=== PATIENT | male | born 1980 | race Hispanic/Latino ===

== ENCOUNTER 2024-06-11 19:27 | Emergency (ER) | payer OTHER, MEDICARE ==
[~2024-06-11] VITALS: Ht 167.6 cm; Wt 81.6 kg
--- NOTE | 2024-06-11 19:51 | ERN ---
General Chief Complaint: Alcohol Intoxication Stated Complaint: INTOXICATION Time Seen by MD: 19:32 Source: patient, EMS History of Present Illness Initial Comments 43-year-old male coming in for medical clearance. Per EMS patient was sent over by law enforcement for medical clearance. Patient states he does not know why he was here and states he was sent over for clearance. Allergies: Coded Allergies: No Known Allergies (Unverified Allergy, Unknown, 06/11/24) Past Medical History Past Medical History: Alcoholism Past Surgical History: None ROS Dictation CONSTITUTIONAL: No chills, no fever, no weakness, no diaphoresis, no malaise. HEAD/FACE: No signs of trauma. EENT: No eye pain, no blurred vision, no tearing, no double vision, no ear pain, no ear discharge, no nose pain, no nasal congestion, no throat pain, no throat swelling, no mouth pain. RESPIRATORY: No cough, no orthopnea, no SOB, no stridor, no wheezing. CARDIOVASCULAR: No chest pain, no edema, no palpitations, no syncope. GASTROINTESTINAL/ABDOMINAL: No abdominal pain, no constipation, no diarrhea, no nausea, no vomiting. GENITOURINARY: No abnormal discharge, no dysuria, no frequent urination, no hematuria. No complaints of pain in the genitals. MUSCULOSKELETAL: No back pain, no gout, no joint pain, no joint swelling, no muscle pain, no muscle stiffness, no neck pain. INTEGUMENTARY: No change in color, no change in hair/nails, no dryness, no lesion, no lumps, no rash. NEUROLOGICAL/PSYCH: No anxiety, not depressed, no emotional problem, no headache, no numbness, no pre-existing deficit, no history of seizures, no tremors, no weakness. HEMATOLOGIC/LYMPHATIC: Not anemic, no history of blood clots, no apparent bleeding, no bruising, glands not swollen. All Systems Negative, Except as Noted. Physical Exam Physical Exam Dictation VITAL SIGNS: Reviewed. GENERAL APPEARANCE: Alert, oriented x3, no acute distress, obese. HEAD AND FACE: Non-traumatic. EYES: PERRL, pink conjunctivas, eyelid no trauma, anterior chamber clear. EARS: Pinnas intact and no signs of trauma or erythema. Ear canals clear and no discharge. TMs no erythema. NOSE: No discharge, no bleeding. OROPHARYNX: Mouth normal, teeth no caries, tongue pink. Pharynx clear, no erythema. Tonsils no exudates, no abscesses noted. Mucous membrane moist. NECK: Supple, non-tender, no thyromegaly, no masses, no JVD, no bruits. BREAST: Deferred. CHEST: No tenderness, no crepitus, no paradoxical movement, no retractions. LUNGS: Clear, well-ventilated, symmetric, no rales, no wheezing, no rhonchi, no stridor, good breath sounds bilaterally. HEART: Regular rate, regular rhythm, no murmur, no gallops. VASCULAR: No peripheral edema. ABDOMEN: Soft, positive bowel sounds, nondistended, no guarding, nontender, no r ebound, no masses no hepatomegaly, no splenomegaly, no Batista's sign, no hernias. RECTAL: Deferred. GENITAL: Deferred. NEUROLOGICAL: Normal speech, gross motor function intact, gross sensory function intact. MUSCULOSKELETAL: Neck nontender, full range of motion, back nontender, full range of motion. EXTREMITIES: Nontender, full range of motion. SKIN: Color pink, dry, no turgor, no rash, no lacerations, no abrasions, no contusions. LYMPHATICS: Deferred. Results Laboratory and Microbiology Lab and Micro Result Laboratory Tests Test 06/11/24 20:11 06/11/24 20:20 06/11/24 23:40 White Blood Count 7.7 K/uL (4.8-10.8) Red Blood Count 5.03 MIL/uL (4.50-6.20) Hemoglobin 15.6 g/dL (14.0-18.0) Hematocrit 45.1 % (42-54) Mean Corpuscular Volume 89.7 fL (79-99) Mean Corpuscular Hemoglobin 31.0 pg (27.0-33.0) Mean Corpuscular Hemoglobin Concent 34.6 g/dL (32.0-36.0) Red Cell Distribution Width 12.4 % (11.0-15.5) Platelet Count 299 K/uL (130-400) Mean Platelet Volume 9.8 fL (7.5-10.5) Immature Granulocyte % (Auto) 0.0 % (0-1) Neutrophils (%) (Auto) 63.4 % (40.0-77.0) Lymphocytes (%) (Auto) 26.9 % (21.0-51.0) Monocytes (%) (Auto) 7.7 % (3.0-13.0) Eosinophils (%) (Auto) 1.2 % (0.0-8.0) Basophils (%) (Auto) 0.8 % (0.0-5.0) Neutrophils # (Auto) 4.9 K/uL (1.8-7.7) Lymphocytes # (Auto) 2.1 K/uL (1.0-4.8) Monocytes # (Auto) 0.6 K/uL (0.1-1.0) Eosinophils # (Auto) 0.09 K/uL (0.00-0.70) Basophils # (Auto) 0.06 K/uL (0.00-0.20) Absolute Immature Granulocyte (auto 0.00 K/uL (0-1) Nucleated Red Blood Cells 0.0 % (0.0-0.19) Sodium Level 136 mmol/L (136-145) Potassium Level 3.4 mmol/L (3.5-5.1) L Chloride Level 98 mmol/L (101-111) L Carbon Dioxide Level 25 mmol/L (21-32) Blood Urea Nitrogen 15 mg/dL (7-18) Creatinine 1.1 mg/dL (0.5-1.3) Glomerular Filtration Rate Calc 86 mL/min (>90) Random Glucose 154 mg/dL (70-105) H Total Calcium 8.8 mg/dL (8.5-10.1) Total Creatine Kinase 376 U/L (21-232) H Salicylates Level < 2.8 mg/dL (2.8-20.0) L Acetaminophen Level < 1 mcg/mL (10-29) L Serum Alcohol 116 mg/dL (0-10) H 14 mg/dL (0-10) H Urine Color YELLOW (YELLOW) Urine Appearance CLEAR (CLEAR) Urine pH 5.5 (5.0-8.0) Urine Specific [place] 1.026 (1.001-1.031) Urine Protein 10 mg/dL (NEGATIVE) H Urine Glucose (UA) >=1000 mg/dL (NEGATIVE) H Urine Ketones NEGATIVE mg/dL (NEGATIVE) Urine Occult Blood NEGATIVE (NEGATIVE) Urine Nitrate NEGATIVE (NEGATIVE) Urine Bilirubin NEGATIVE mg/dL (NEGATIVE) Urine Urobilinogen 2.0 mg/dL (0.2-1.0) H Urine Leukocyte Esterase NEGATIVE Mikael/uL Urine RBC 0-1 /HPF (0-1) Urine WBC 2-5 /HPF (0-1) H Urine Bacteria RARE /HPF (None Seen) Urine Opiates Screen NEGATIVE (NEGATIVE) Urine Barbiturates Screen NEGATIVE (NEGATIVE) Urine Phencyclidine Screen NEGATIVE (NEGATIVE) Urine Amphetamines Screen NEGATIVE (NEGATIVE) Urine Benzodiazepines Screen NEGATIVE (NEGATIVE) Urine Cocaine Screen POSITIVE (NEGATIVE) H Urine Marijuana (THC) Screen POSITIVE (NEGATIVE) H Labs Reviewed?: Yes EKG/XRAY/US/CT/MRI X-RAY Comment [address] [place] [address] IMAGING REPORT Signed PATIENT: KIMBERLY ALMARAZ MR#: [id number] : 1980 SEX: M AGE: 43 LOCATION: ED ORDER 40 STATUS: REG ER REPORT#: [id number] SERVICE 39 REASON: medical clearance ORDERING PHYSICIAN: NO RIVERS MD PROCEDURE: CXR1VW - CHEST 1VW CHEST 1VW HISTORY: Medical. COMPARISON: None FINDINGS: A frontal projection of the chest was obtained. Prominent interstitial markings are seen with possible superimposed infiltrates. The heart is normal in size. Degenerative changes are seen. No evidence of aortic calcification is seen. IMPRESSION: 1. Prominent interstitial markings are seen with possible superimposed infiltrates. DICTATED BY: MACK ROSENBAUM MD DATE: 06/11/242228 ELECTRONICALLY SIGNED BY: MACK ROSENBAUM MD DATE: 06/11/242231 [facility] MDM: Differential diagnosis: Medical screening, polysubstance abuse, alcohol abuse, Patient is a 43-year-old gentleman coming in for medical screening. Per EMS patient was sent over from [facility] further evaluation. Throughout ER visit patient has been stable received IV fluids and also was not given some new since the eat. His alcohol level dropped significantly. Per [facility] patient is to follow up at [facility] and to be discharged since he does not have a plan for hurting himself. Negative suicidal ideation any other psychiatric concern which with a warrant an immediate psych evaluation. Patient understands discharge and agrees with plan to follow up at [facility]. ED Course Orders Procedure Category Date Status Time Cbc With Differential LAB 06/11/24 Complete 19:40 Alcohol, Blood LAB 06/11/24 Complete 19:40 Salicylate LAB 06/11/24 Complete 19:40 Acetaminophen LAB 06/11/24 Complete 19:40 Urinalysis Profile LAB 06/11/24 Complete 19:40 Chest 1vw RAD 06/11/24 Resulted 19:40 Creatine Kinase, Total LAB 06/11/24 Complete 19:40 Basic Metabolic Panel LAB 06/11/24 Complete 19:40 Drug Screen Urine LAB 06/11/24 Complete 19:40 Hydroxyzine 50mg Vial PHA 06/11/24 In Process (Atarax 50mg Inj) 22:00 0.9%Nacl 1000ml (Ns PHA 06/11/24 Complete 1000ml) 23:30 Alcohol, Blood LAB 06/11/24 Complete 23:23 Current Medications Medications (Trade) Dose Ordered Sig/Angel Route PRN Reason Start Time Stop Time Status Last Admin Dose Admin Hydroxyzine HCl (ATArax 50MG INJ) 50 mg ONCE IM 06/11/24 22:00 07/11/24 21:59 06/11/24 21:49 Sodium Chloride 1,000 ml @ 0 mls/hr ONCE ONCE IV 06/11/24 23:30 06/11/24 23:31 DC Vital Signs Date Time Temp Pulse Resp B/P (MAP) Pulse Ox O2 Delivery O2 Flow Rate FiO2 06/11/24 19:30 98.1 102 18 130/80 98 Room Air* 0 21 06/11/24 19:29 98.1 102 20 130/80 98 DX & DISP Disposition: Discharge Departure Impression: Primary Impression: Encounter for medical screening examination Additional Impressions: Polysubstance abuse, Alcohol abuse Condition: Stable Additional Instructions: FOLLOW-UP WITH PRIMARY CARE PROVIDER IN 1 TO 2 DAYS. TAKE MEDICATIONS DIRECTED HERE IN THE EMERGENCY ROOM. OKAY TO CONTINUE HOME MEDICATIONS UNLESS OTHERWISE DISCUSSED DURING YOUR VISIT IN THE EMERGENCY ROOM TODAY. RETURN TO YOUR NEAREST EMERGENCY ROOM IF SYMPTOMS WORSEN OR IF THERE IS NO IMPROVEMENT. CALL 911 IF YOU NEED IMMEDIATE ASSISTANCE. TAKE TYLENOL [id number] NEEDED AND IF NO CONTRAINDICATIONS ARE PRESENT. INCREASE ORAL HYDRATION. A WOUND CULTURE OR URINE CULTURE WAS ORDERED HERE IN THE EMERGENCY ROOM DEPARTMENT PLEASE FOLLOW-UP WITH PRIMARY CARE PROVIDER AND ADVISE THEM TO GET REPEAT PORTS FROM OUR FACILITY. IF YOU HAD ANY ABEBE WRAP/SPLINTS THAT WERE APPLIED HERE, PLEASE DO NOT REMOVE THEM UNTIL YOU SEE YOUR PRIMARY CARE OR SPECIALTY. Referrals: Referrals: SELF,REFERRAL (PCP) DILSHAD PRYOR MD Time of Disposition: 00:10 NO RIVERS MD Jun 11, 2024 19:51
--- NOTE | 2024-06-11 20:04 | NUR ---
PATIENT SENT IN BY [facility] FOR ALCOHOL INTOXICATION, MEDICAL CLEARANCE. BLEW A 0.4 AT FACILITY. PATIENT STATES HE IS HUNGRY BECAUSE HE HAS NOT EATEN IN "4" DAYS. PATIENT GIVEN SNACK.
[2024-06-11 20:19] LABS: BASOPHILS # (AUTO) 0.06 K/uL (0.00-0.20); BASOPHILS % (AUTO) 0.8 % (0.0-5.0); EOSINOPHILS # (AUTO) 0.09 K/uL (0.00-0.70); EOSINOPHILS % (AUTO) 1.2 % (0.0-8.0); HEMATOCRIT 45.1 % (42-54); LYMPHOCYTES # (AUTO) 2.1 K/uL (1.0-4.8); LYMPHOCYTES % (AUTO) 26.9 % (21.0-51.0); MEAN CORPUSCULAR HGB CONC 34.6 g/dL (32.0-36.0); MEAN CORPUSCULAR VOLUME 89.7 fL (79-99); MONOCYTES # (AUTO) 0.6 K/uL (0.1-1.0); MONOCYTES % (AUTO) 7.7 % (3.0-13.0); NEUTROPHILS # (AUTO) 4.9 K/uL (1.8-7.7); NEUTROPHILS % (AUTO) 63.4 % (40.0-77.0); PLATELET COUNT (AUTO) 299 K/uL (130-400); RED BLOOD CELL COUNT(AUTO) 5.03 MIL/uL (4.50-6.20); RED CELL DISTRIBUTION WIDTH 12.4 % (11.0-15.5); WHITE BLOOD COUNT (AUTO) 7.7 K/uL (4.8-10.8)
[2024-06-11 20:28] LABS: CARBON DIOXIDE 25 mmol/L (21-32); CHLORIDE 98 mmol/L (101-111); CREATININE 1.1 mg/dL (0.5-1.3); GLOMERULAR FILTR. RATE CALC 86 mL/min (>90); GLUCOSE,RANDOM 154 mg/dL (70-105); POTASSIUM 3.4 mmol/L (3.5-5.1); SODIUM SERUM 136 mmol/L (136-145); UREA NITROGEN, BLOOD 15 mg/dL (7-18)
[2024-06-11 20:31] LABS: ADD UA MICROSCOPIC YES; APPEARANCE,URINE CLEAR (CLEAR); BILIRUBIN,URINE NEGATIVE (NEGATIVE); COLOR,URINE YELLOW (YELLOW); GLUCOSE, URINE (UA) >=1000 mg/dL (NEGATIVE); KETONES,URINE NEGATIVE (NEGATIVE); LEUKOCYTE ESTERASE ,URINE NEGATIVE Leu/uL (NEGATIVE); NITRATE,URINE NEGATIVE (NEGATIVE); OCCULT BLOOD,URINE NEGATIVE (NEGATIVE); PH,URINE 5.5 (5.0-8.0); PROTEIN,URINE 10 mg/dL (NEGATIVE)
[2024-06-11 20:33] LABS: ALCOHOL, BLOOD 116 mg/dL (0-10); CREATINE KINASE, TOTAL 376 U/L (21-232)
[2024-06-11 20:33] LABS: BACTERIA,URINE RARE /HPF (None Seen); MUCUS,URINE FEW LPF (None Seen); RBC,URINE 0-1 /HPF (0-1)
[2024-06-11 20:36] LABS: AMPHET/METH SCREEN,URINE NEGATIVE (NEGATIVE); BARBITURATE SCREEN, URINE NEGATIVE (NEGATIVE); BENZODIAZEPINES SCREEN,URINE NEGATIVE (NEGATIVE); CANNABINOID SCREEN,URINE POSITIVE (NEGATIVE); COCAINE SCREEN,URINE POSITIVE (NEGATIVE); OPIATE SCREEN,URINE NEGATIVE (NEGATIVE); PHENCYCLIDINE SCREEN,URINE NEGATIVE (NEGATIVE)
[2024-06-11 20:50] LABS: ACETAMINOPHEN < 1 mcg/mL (10-29); SALICYLATE < 2.8 mg/dL (2.8-20.0)
[2024-06-11] MEDS: hydrOXYzine 50MG VIAL 50 MG/ML VIAL IM SCH (21:49)
--- NOTE | 2024-06-11 22:32 | HMCIMG ---
CHEST 1VW HISTORY: Medical. COMPARISON: None FINDINGS: A frontal projection of the chest was obtained. Prominent interstitial markings are seen with possible superimposed infiltrates. The heart is normal in size. Degenerative changes are seen. No evidence of aortic calcification is seen. IMPRESSION: 1. Prominent interstitial markings are seen with possible superimposed infiltrates.
[2024-06-11] MEDS ORDERED: 0.9%NACL 1000ML 1,000 ML IV ONE (23:30)
--- NOTE | 2024-06-12 00:05 | NUR ---
SPOKE TO [facility]ICH AT [facility], PATIENT WAS NEVER ACCEPTED, BUT IF PATIENT STILL WISHES, HE CAN GO BACK TO [facility] AND THEY WILL CONTINUE WITH THE ADMISSION ASSESSMENT
--- NOTE | 2024-06-12 00:06 | NUR ---
ER PHYSICIAN UPDATED ON COVERSTATION WITH [facility]
[2024-06-12 00:22] VITALS: BP 122/76; PULSE 88; RESP 16; TEMP 98; O2SAT 98
== END 2024-06-12 00:26 | disposition home or self-care (01) ==
LOC: EDH 19:27
DX: F10.129 Alcohol abuse with intoxication, unspecified (principal); F19.10 Other psychoactive substance abuse, uncomplicated; Z79.899 Other long term (current) drug therapy; Y90.9 Presence of alcohol in blood, level not specified
CPT/HCPCS: 99284; 71045; 82550; 80048; 80305; 85025; 36415; 96372; 81001; G0481; J3410